=== PATIENT | male | born 1980 | race Two or more races ===

== ENCOUNTER → 2021-04-22 10:29 | Outpatient (BNVA) | payer OTHER, SELFPAY | PROVIDERS: PCP Internal Medicine; Visit Provider Internal Medicine | DX: I10 Essential (primary) hypertension (principal) | CPT/HCPCS: 93005 ==

== ENCOUNTER → 2021-04-30 11:11 | Outpatient (REF) | payer OTHER, SELFPAY ==
--- NOTE | 2021-04-30 11:19 | CA_ITS ---
Transthoracic Echocardiogram Patient (Last, First, Middle): Jonathan Hollis O Gender: Male Date of : 1980 Age: 40 Procedure Date: 04/30/2021 Procedure Type: Transthoracic Echocardiogram Location: OP Height: 177.8 cm Weight: 93.44 kg BSA: 2.11 m2 Heart Rate: bpm BP: 124 / [address] Wirer: LUL Condon MD: Jonn Oneill MD Missile Inspector: Clyde Hay MD Symptoms: I10 - Essential (primary) hypertension Study Quality: Fair ECG Rhythm: Sinus Conclusions: - 1. Normal LV systolic and diastolic function 2. Mild aortic regurgitation 3. No pericardial effusion Findings Left Ventricle Normal left ventricular size, thickness, and systolic function. The visually estimated ejection fraction is between 60-65%. Diastolic function is normal for age. Right Ventricle Normal right ventricular cavity size and systolic function. Atria Both atria are normal in size. There is lipomatous hypertrophy of the interatrial septum. Interatrial shunt cannot be excluded. Aortic Valve Normal aortic valve structure and function. There is no aortic valve stenosis. There is mild aortic valve regurgitation. Mitral Valve Normal mitral valve structure and function. There is no mitral valve regurgitation. There is no mitral valve stenosis. Pulmonic Valve The pulmonic valve is likely normal. There is trace pulmonic valve regurgitation. Tricuspid Valve Normal tricuspid valve structure. Tricuspid regurgitation envelope is inadequate for calculation of right ventricular systolic pressure. Great Vessels All visible segments of the aorta are normal in size. The pulmonary artery was not well visualized. Venous The inferior vena cava is normal in size and collapses greater than 50% with inspiration. Pericardium/Pleural There is no evidence of pericardial effusion. Prior Study Comparison No prior study available for comparison. Measurements M-Mode Liner Measurements Normals - Women/Men AOV Cusps: 2.30 1.5-2.6 cm/m2 2D Linear Measurements IVSd: 0.80 0.6-0.9/0.6-1.0 cm LVIDd: 4.78 3.9-5.3/4.2-5.9 cm LVIDd Index: 2.27 2.4-3.2/2.2-3.1 cm/m2 LVIDs: 2.44 2.0-3.6 cm LVPWd: 0.91 0.7-1.1 cm Ao Root: 3.70 2.1-3.5 cm LA Diam: 3.80 2.7-3.8/3.0-4.0 cm LAIDs Index: 1.80 1.5-2.3 cm/m2 LV Mass: 170.71 67-162/88-224 g LV Mass Index: 80.91 43-95/49-115 g/m2 LVOT Diam: 2.30 3.0+(-)1.3 cm Mitral Valve MV Pk E: 1.11 MV PK A: 0.60 MV Decel Time: 158.00 E/A: 1.90 E'Lateral: 13.70 E'Medial: 9.90 E/E' Med: 11.20 E/E' Lat: 8.10 PHT: 46.00 MVA PHT: 4.78 Decel [place]: 7.00 Aortic Valve AoV Pk Toño: 1.46 AoV Mn Toño: 0.96 AoV VTI: 0.30 AoV Pk Grad: 9.00 Aov Mn Grad: 4.00 JAZLYN Cont.VTI: 3.04 AI Pk Toño: 3.24 AI [place]: 2.26 LVOT LVOT Pk Toño: 0.98 LVOT Mn Toño: 0.76 LVOT VTI: 0.22 LVOT Pk Grad: 4.00 LVOT Mn Grad: 3.00 LVOT Diam: 2.30 LVOT Area: 4.15 Diastolic Function MV Pk E: 1.11 MV Pk A: 0.60 E/A: 1.90 E'Medial: 9.90 E/E' Med: 11.20 E' Laterial: 13.70 E/E' Lat: 8.10 Tricuspid Valve RA Press: 3.00 Great Vessels Aorta Ao Root-2D: 3.70 2.0-3.7 cm Ao Asc: 3.10 2.1-3.4 cm Ao Arch: 2.70 Pulmonary Valve PV Pk Toño: 1.40 Peak PV Grad: 8.00 Updated in Other Vendor System with Status of Final Clyde Hay MD electronically signed on 05/01/2021 5:33:00 PM with status of Final
== END ==
LOC: HO.CARD 11:11
PROVIDERS: Visit Provider Internal Medicine
DX: I10 Essential (primary) hypertension (principal)
CPT/HCPCS: 93306

== ENCOUNTER 2021-05-06 08:59 | Outpatient (REF) | payer OTHER, SELFPAY ==
--- NOTE | ~2021-05-06 | US_ITS ---
EXAMINATION: ULTRASOUND OF KIDNEYS WITH RENAL ARTERY DOPPLER CLINICAL INFORMATION: Hypertension. COMPARISON: None. TECHNIQUE: Ultrasound of the kidneys was performed along with color flow Doppler imaging and velocity measurements in the proximal mid and distal renal arteries. Aortic velocities were measured and renal/aortic ratios were calculated. FINDINGS: The kidneys appeared normal with the right kidney measuring 11.6 x 6.3 x 5.7 cm and the left kidney measuring 12.7 x 6.2 x 5.8 cm. No renal masses, renal stones or hydronephrosis is seen. Renal cortical thickness appears normal. Velocity measurements in the proximal mid and distal renal arteries are elevated on the right with velocity in the mid renal artery of 197 cm/s. On the left, velocities are within normal limits with the highest value being 140 cm/s in the mid artery. Resistive indices bilaterally are within normal limits. Velocity in the aorta is elevated at 214 cm/s and, therefore, the renal aortic ratios would not be valid. The bladder appeared unremarkable. Incidental note made of hepatic steatosis. US/US renal BI IMPRESSION: Suggestion of renal artery stenosis on the right with elevated velocity in the mid renal artery. CTA could be performed for further evaluation. Incidentally noted hepatic steatosis.
--- NOTE | ~2021-05-06 | US_ITS ---
EXAMINATION: ULTRASOUND OF KIDNEYS WITH RENAL ARTERY DOPPLER CLINICAL INFORMATION: Hypertension. COMPARISON: None. TECHNIQUE: Ultrasound of the kidneys was performed along with color flow Doppler imaging and velocity measurements in the proximal mid and distal renal arteries. Aortic velocities were measured and renal/aortic ratios were calculated. FINDINGS: The kidneys appeared normal with the right kidney measuring 11.6 x 6.3 x 5.7 cm and the left kidney measuring 12.7 x 6.2 x 5.8 cm. No renal masses, renal stones or hydronephrosis is seen. Renal cortical thickness appears normal. Velocity measurements in the proximal mid and distal renal arteries are elevated on the right with velocity in the mid renal artery of 197 cm/s. On the left, velocities are within normal limits with the highest value being 140 cm/s in the mid artery. Resistive indices bilaterally are within normal limits. Velocity in the aorta is elevated at 214 cm/s and, therefore, the renal aortic ratios would not be valid. The bladder appeared unremarkable. Incidental note made of hepatic steatosis. US/US renal doppler IMPRESSION: Suggestion of renal artery stenosis on the right with elevated velocity in the mid renal artery. CTA could be performed for further evaluation. Incidentally noted hepatic steatosis.
== END 2021-05-06 09:00 | disposition home or self-care (01) ==
LOC: HO.SL 08:59
PROVIDERS: Visit Provider Internal Medicine
DX: G47.33 Obstructive sleep apnea (adult) (pediatric) (principal); I10 Essential (primary) hypertension
CPT/HCPCS: 76775; 93975; 95806

== ENCOUNTER → 2021-05-13 08:15 | Outpatient (BNVA) | payer OTHER, SELFPAY | PROVIDERS: PCP Internal Medicine; Visit Provider Internal Medicine ==